=== PATIENT | male | born 1975 | race Caucasian/White ===

== ENCOUNTER → 2024-08-20 | Day surgery (SDC) | payer BC ==
[~2024-08-20] MED LIST: Midazolam 1 MG/ML 2 ML SDV ONE; Propofol 200 MG/20 ML SDV ONE; fentaNYL 50 MCG/ML SDV ONE
[2024-08-20] MEDS: Lactated Ringers 1,000 ML IV SCH (09:00)
[2024-08-20 11:30] VITALS: BP 119/71; PULSE 49
== END ==
LOC: JP.SDS 08:18
PROVIDERS: ATTEND Surgery
DX: Z12.11 Encounter for screening for malignant neoplasm of colon (principal); D12.5 Benign neoplasm of sigmoid colon; K63.5 Polyp of colon; G47.33 Obstructive sleep apnea (adult) (pediatric); F41.9 Anxiety disorder, unspecified
CPT/HCPCS: 00811; 45385; J2250; J2704; J3010; J7120; 88305